=== PATIENT | female | born 1970 | race Caucasian/White ===

== ENCOUNTER 2023-08-25 09:01 | Emergency (ER) | payer OTHER ==
--- NOTE | 2023-08-25 11:27 | ED Physician Documentation ---
History of Present Illness - Stated complaint Stated Complaint: LOW BACK PX/NECK PX - Chief complaint Chief Complaint: Back Pain - History obtained from History obtained from: Patient - Additonal information Additional information: 53-year-old female presents with request for MRI. The patient has a history of a Chiari malformation. She states she had sudden onset of severe head pressure About a week ago. She drove over to [facility] and had an evaluation including CT which was apparently normal And she was subsequently discharged from the ER but the pain worsened later and then she they went over to [facility]. She was admitted to Obs at [facility] according to the patient and underwent a brain MRI which was apparently normal although I do not have access to this, but she was referred to a neurosurgeon on outpatient basis. She states that she tried to make an a follow-up with the neurosurgeon but she cannot get an urgent follow-up and that she gets the CT of her cervical spine. The patient states that she has had accompanied with the severe head pressure, pain in both the cervical spine and radiating down through her entire back and now is settling more in the lower back. She has pain radiating down her right leg, and had some issues with constipation but no urinary retention, no loss of bowel or bladder. She denies any saddle anesthesia. She has not had a fever or chills. She denies any extremity weakness or numbness.She has not had any spinal manipulation or puncture such as IV drug use or instrumentation. She states that she talked to her neighbor who is a restaurant host who spoke with a physician here in our ER who advised her to come to the ER for an MRI. Review of Systems Constitutional: reports: Reviewed and negative Cardiac: reports: Reviewed and negative Respiratory: reports: Reviewed and negative GI: reports: Reviewed and negative : reports: Reviewed and negative Skin: reports: Reviewed and negative Musculoskeletal: reports: Neck pain, Back pain, Extremity pain Neurologic: reports: Reviewed and negative Psychiatric: reports: Reviewed and negative Endocrine: reports: Reviewed and negative PD PAST MEDICAL HISTORY - Past Medical History Past Medical History: Yes Neuro: Other - Past Surgical History Past Surgical History: Yes Ortho: Other - Present Medications Home Medications: Ambulatory Orders Medication Instructions Recorded Confirmed Gabapentin [Neurontin] 300 mg PO TID #90 cap 08/25/23 HYDROcod/ACETAM 5/325 [[place] 5/325] 1 - 2 tablet PO Q6H PRN #14 tablet 08/25/23 predniSONE [Deltasone] 40 mg PO DAILY 5 Days #10 tablet 08/25/23 - Allergies Allergies/Adverse Reactions: Allergies Allergy/AdvReac Type Severity Reaction Status Date / Time No Known Drug Allergies Allergy Verified 08/25/23 09:20 - Social History Does the pt smoke?: No Smoking Status: Never smoker Does the pt drink ETOH?: No Does the pt have substance abuse?: No - Immunizations Immunizations are current?: Yes - POLST Patient has POLST: No PD ED PE NORMAL - Vitals Vital signs reviewed: Yes - General General: Alert and oriented X 3, No acute distress, Well developed/nourished - HEENT HEENT: Atraumatic, Moist mucous membranes - Neck Neck: Supple, no meningeal sign, No bony TTP - Cardiac Cardiac: RRR, No murmur - Respiratory Respiratory: No respiratory distress, Clear bilaterally - Back Back: No CVA TTP, Other (Midline lower lumbar tenderness) - Derm Derm: Normal color, Warm and dry, No rash Results - Vitals Vitals: Vital Signs - 24 hr 08/25/23 08/25/23 08/25/23 09:13 10:14 17:07 Temperature 36.0 C L 36.2 C L 36.6 C Heart Rate 69 66 72 Respiratory 20 16 15 Rate Blood Pressure 131/78 H 132/75 H 119/65 O2 Saturation 100 100 99 Oxygen O2 Source Room air - Labs Labs: Laboratory Tests 08/25/23 08/25/23 13:05 13:05 WBC 5.9 RBC 4.42 Hgb 13.0 Hct 39.8 MCV 90.0 MCH 29.4 MCHC 32.7 RDW 12.0 Plt Count 225 MPV 9.6 Neut # (Auto) 3.6 Lymph # (Auto) 1.8 Towner # (Auto) 0.4 Eos # (Auto) 0.1 Baso # (Auto) 0.0 Absolute Nucleated RBC 0.00 Nucleated RBC % 0.0 Sodium 138 Potassium 4.0 Chloride 102 Carbon Dioxide 29 Anion Gap 7.0 BUN 17 Creatinine 0.9 Estimated GFR (MDRD) 65 L Glucose 98 Calcium 9.7 Total Bilirubin 0.3 AST 16 ALT 18 Alkaline Phosphatase 53 Total Protein 7.5 Albumin 4.5 Globulin 3.0 Albumin/Globulin Ratio 1.5 Lipase 24 - Rads (name of study) No standard instances Relevant Findings:: Final report received PD Medical Decision Making - ED course Complexity details: reviewed results, re-evaluated patient, considered differential, d/w patient ED course: 53-year-old female presented requesting MRI of her cervical spine as described in HPI. She was also complaining of some new lower lumbar pain radiating to her legs. After discussion with patient and after exam, I do not believe she needs an emergent MRI, however she was directed here a physician and unfortunately she cannot get an appointment to follow-up with her neurosurgeon until this this MRI is done and it will be relatively impossible to get it done in a timely fashion on outpatient basis therefore I did discuss with telephone technician and we can fit her in here today before his outpatient images. I will also add her lumbar spine given her new findings to the patient does not have signs of saddle anesthesia or osteomyelitis or epidural abscess. I discussed with Patient that the MRI is not emergent but we were able to get it done today. Labs are stable, MRI shows no acute emergent findings, she does have a number of chronic findings that may be contributing to her symptoms. I advised her to follow-up with neurosurgery on outpatient basis as well as her PCP. I have also increase the patient's gabapentin to 300 mg 3 times a day as needed and I will give her a short course of steroids to see if that is helpful. She was cautioned on the potential side effects of this medication and desired to proceed. I did discuss with patient and her that this medication may not be helpful but the patient again would like to proceed. She was also given a short course of [place] to use only as needed and was cautioned on the side effects of this medication. Patient discharged home in stable condition. Departure - Departure Disposition: Home, Self Care Clinical Impression: Back pain Qualifiers: Back pain location: low back pain Chronicity: acute Back pain laterality: bilateral Sciatica presence: with sciatica Sciatica laterality: bilateral sciatica Qualified Code(s): M54.42 - Lumbago with sciatica, left side Condition: Good Instructions: Low Back Pain Self Care Prescriptions: predniSONE [Deltasone] 40 mg PO DAILY 5 Days #10 tablet Gabapentin [Neurontin] 300 mg PO TID #90 cap HYDROcod/ACETAM 5/325 [[place] 5/325] 1 - 2 tablet PO Q6H PRN #14 tablet PRN Reason: Pain Comments: Maggy, it is not clear what is causing your symptoms at this time. We have obtained an MRI of the cervical spine and lumbar spine and we will notify you via phone of any pertinent results or you can check your online chart. Please schedule today for follow-up with the neurosurgeon as you are planning to do. A copy of the MRI can be requested from radiology to take to your neurosurgeon. Discharge Date/Time: 08/25/23 17:10
[2023-08-25 13:16] LABS: BASOPHILS % (AUTO) 0.5 %; EOSINOPHILS # (AUTO) 0.1 10^3/uL (0.0-0.7); EOSINOPHILS % (AUTO) 2.1 %; HCT - HEMATOCRIT 39.8 % (37.0-47.0); LYMPHOCYTES # (AUTO) 1.8 10^3/uL (1.5-3.5); LYMPHOCYTES % (AUTO) 29.9 %; MEAN CORPUSCULAR HEMOGLOBIN 29.4 pg (27.0-31.0); MEAN CORPUSCULAR HGB CONC 32.7 g/dL (32.0-36.0); MEAN PLATELET VOLUME 9.6 fL (7.9-10.8); MONOCYTES # (AUTO) 0.4 10^3/uL (0.0-1.0); MONOCYTES % (AUTO) 6.2 %; NEUTROPHILS # (AUTO) 3.6 10^3/uL (1.5-6.6); NEUTROPHILS % (AUTO) 61.1 %; PLT - PLATELET COUNT 225 10^3/uL (130-450); RED BLOOD COUNT 4.42 10^6/uL (4.20-5.40); WHITE BLOOD COUNT 5.9 x10^3/uL (4.8-10.8)
[2023-08-25 13:40] LABS: ALBUMIN 4.5 g/dL (3.2-5.5); ALBUMIN/GLOBULIN RATIO 1.5 (1.0-2.2); BILIRUBIN,TOTAL 0.3 mg/dL (0.2-1.0); CALCIUM 9.7 mg/dL (8.5-10.3); CREATININE 0.9 mg/dL (0.6-1.3); TOTAL PROTEIN 7.5 g/dL (6.4-8.9)
[2023-08-25] MEDS ORDERED: GADOTERATE MEGLUMINE 10 MMOL/20 ML VIAL ONE (15:29)
[2023-08-25] MEDS ORDERED: GADOTERATE MEGLUMINE 10 MMOL/20 ML VIAL IVP ONE (16:00)
--- NOTE | 2023-08-25 16:19 | MRI Report ---
PROCEDURE: CERVICAL SPINE W/WO INDICATIONS: requested by neurosurgeon, radicular symptoms. CONTRAST: CLARISCAN 18.2 ML TECHNIQUE: Noncontrast sagittal T1 spin echo and T2 fast spin echo, sagittal STIR, sagittal PD fast spin echo, f oraminal oblique sagittal T2 fast spin echo, axial gradient echo or T2 fast spin echo through the cer vical spine. After the administration of contrast, sagittal and axial T1 spin echo with fat saturati on through the cervical spine. COMPARISON: None. FINDINGS: Image quality: Diagnostic Alignment: No spondylolisthesis Marrow: No acute fracture. No pathologic enhancement. Prominent venous plexuses around the upper cerv ical spine. No epidural abscess identified. Cord: No pathologic cord signal Soft tissues: Unremarkable paravertebral soft tissues. Specific levels: C2-C3: No stenosis. C3-C4: No stenosis. Small posterior disc osteophyte complex. C4-C5: Small posterior disc osteophyte complex. Mild right neural foraminal narrowing. Mild central n arrowing. Uncovertebral and facet arthropathy. C5-C6: Small posterior disc osteophyte complex. Uncovertebral and facet arthropathy. Mild to moderate central narrowing. Moderate right and [id number] left neural foraminal narrowing.x C6-C7: Posterior disc osteophyte complex. Uncovertebral and facet arthropathy. Mild to moderate centr al narrowing, particularly on the left where there is a disc protrusion in close proximity to the cassy tral cord. Overall mild to moderate bilateral neural foraminal narrowing. C7-T1: Uncovertebral facet arthropathy. No stenosis. IMPRESSION: No pathologic vertebral or epidural enhancement. There are prominent venous plexuses in t he upper cervical spine. No myelopathic cord signal. There are mild to moderate degenerative changes in the mid and lower cervical spine as described abov e. Reviewed by: George Ding MD on 08/25/2023 4:17 PM PST Approved by: George Ding MD on 08/25/2023 4:17 PM PST Station ID: [id number]
--- NOTE | 2023-08-25 16:27 | MRI Report ---
PROCEDURE: LUMBAR SPINE W/WO INDICATIONS: requested by neurosurgeon, LBP w/ recurrent falls. CONTRAST: CLARISCAN 18.2 ML TECHNIQUE: Noncontrast sagittal T1 spin echo and T2 fast spin echo, sagittal STIR, axial T1 and T2 fast spin ech o through the lumbar spine. In cases with scoliosis, additional coronal T2 fast spin echo may be per formed. After the administration of contrast, sagittal and axial T1 spin echo with fat saturation th rough the lumbar spine. COMPARISON: None. FINDINGS: Image quality: Diagnostic Alignment: No spinal listhesis Marrow: No acute fracture. Possible hemangioma in L3. Multilevel disc desiccation. Cord: Cord terminates in normal position Soft tissues: Bilateral renal pelviectasis/extrarenal pelvis. No significant ureter dilation. Specific levels: L1-L2: Mild facet arthropathy. No stenosis. L2-L3: Mild facet arthropathy. No stenosis. L3-L4: Moderate facet arthropathy. Small diffuse disc bulge. No stenosis. Mild left neural foraminal narrowing. L4-L5: Moderate facet arthropathy. Small diffuse disc bulge. Mild narrowing of the bilateral subartic ular recesses. Mild bilateral neural foraminal narrowing. L5-S1: Moderate facet arthropathy. Diffuse disc bulge. Moderate left neural foraminal narrowing, with possible contact also at the left extraforaminal zone. Mild to moderate right neural foraminal narro wing. IMPRESSION: Overall mild spondylotic changes as above. The worst level is at L5-S1, particularly along the exitin g left L5 nerve root. Reviewed by: George Ding MD on 08/25/2023 4:26 PM PST Approved by: George Ding MD on 08/25/2023 4:26 PM PST Station ID: [id number]
[2023-08-25 17:13] VITALS: BP 119/65; O2SAT 99
== END 2023-08-25 17:10 | disposition home or self-care (01) ==
LOC: ED 09:01
DX: M54.42 Lumbago with sciatica, left side (principal)
CPT/HCPCS: 36415; 72156; 72158; 80053; 83690; 85025; 99283; 99284; A9575